=== PATIENT | male | born 1980 | race Caucasian/White ===

== ENCOUNTER 2016-08-06 17:07 | Emergency (ER) | payer SELFPAY ==
[2016-08-06 17:30] VITALS: BP 160/99; PULSE 71; TEMP 98.5; BMI 29.0
[2016-08-06] MEDS ORDERED: TETRACAINE 0.5% OPHTH SOLN 2 ML BOTTLE ONE (18:18)
[2016-08-06] MEDS ORDERED: TOBRA 0.3%/DEXAMETH 0.1% OPHTHALMIC SUSP 2.5 ML BTL OD ONE (20:00)
[2016-08-06] MEDS ORDERED: ARTIFICIAL TEARS (POLYVINYL ALCOHOL 1.4%) OPTH DROPS OD ONE (20:00)
--- NOTE | 2016-08-06 20:04 | PDOC ---
History of Present Illness - General Chief Complaint: Foreign Body (FB) Stated Complaint: RT EYE PAIN/INJURY Time Seen by Provider: 08/06/16 17:59 History Source: Patient Exam Limitations: Language Barrier - History of Present Illness Initial Comments: 08/06/16 20:08 NEPHEW TRANSLATING; regine fb/ SOLUTION TO BREAK UP CEMENT WHILE DRILLING IN RIGHT EYE X 1 DAY; WITH PAIN Timing/Duration: 24 hours, getting worse Severity: mild Associated Symptoms: denies: cough, nausea/vomiting Past History - Past Medical History Allergies/Adverse Reactions: Allergies Allergy/AdvReac Type Severity Reaction Status Date / Time No Known Allergies Allergy Verified 08/06/16 17:27 Other medical history: denie - Immunization History Immunization Up to Date: Yes - Psycho/Social/Smoking Cessation Hx Anxiety: No Suicidal Ideation: No Smoking History: Never smoked Information on smoking cessation initiated: No Hx Alcohol Use: No Drug/Substance Use Hx: No Substance Use Type: None Review of Systems - Review of Systems Constitutional: No: Chills, Fever, Malaise HEENTM: Yes: Tearing, Recent change in vision, Other (EYE APPEARS FOGGY). No: Double Vision Respiratory: No: Symptoms reported, Cough Cardiac (ROS): No: Symptoms Reported ABD/GI: No: Symptoms Reported *Physical Exam - Vital Signs Last Vital Signs Temp Pulse Resp BP Pulse Ox 98.5 F 71 20 160/99 98 08/06/16 17:27 08/06/16 17:27 08/06/16 17:27 08/06/16 17:27 08/06/16 17:27 - Physical Exam HEENT: positive: VIKTOR, TMs Normal, Pharynx Normal, Other (LARGE MEDIAL ABRASION TO 1/2 SURFACE OF CONJUNCTIVA INCLUDING CENTER/ MEDIAL CORNEA; OD20/50, OS20/15 WO CORECTION) Neck: negative: Tender, Rigid Respiratory/Chest: positive: Lungs Clear, Accessory Muscle Use Medical Decision Making - Medical Decision Making 08/06/16 20:[address] ALEGRIA; WILL SEE PT IN OFFICE AFTER 9AM TOMORROW, ALSO SUGGEST ARTIFICIAL TEARS AND TOBRADEX OVERNIGHT; RECEIVED FROM PHARMACY NOW; PT AGREES WITH PLAN *DC/Admit/Observation/Transfer Diagnosis at time of Disposition: Corneal abrasion Qualifiers: Encounter type: initial encounter Laterality: right Qualified Code(s): S05.01XA - Injury of conjunctiva and corneal abrasion without foreign body, right eye, initial encounter - Discharge Dispostion Admit: No - Patient Instructions Additional Instructions: PLEASE SEE EYE MD TOMORROW; CALL AFTER 9AM DR ALEGRIA [phone]; PLEASE USE ARTIFICAL TEARS 1 DROP RIGHT EYE EVERY HOUR; USE EYE ANTIBIOTIC EVERY 3 HOURS/ TOBRADREX 1 DROP RIGHT EYE;; RETURN TO ED FOR ANY NEW SYMPTOMS TONIGHT; TAKE MOTRIN FOR5 PAIN - Post Discharge Activity Work/School Note: Back to Work
== END 2016-08-06 20:18 | disposition home or self-care (01) ==
LOC: JERFT 17:07
DX: S05.01XA Injury of conjunctiva and corneal abrasion without foreign body, right eye, initial encounter (principal); W20.8XXA Other cause of strike by thrown, projected or falling object, initial encounter; Y93.89 Activity, other specified; Y92.9 Unspecified place or not applicable; Y99.0 Civilian activity done for income or pay
CPT/HCPCS: 99281-25